=== PATIENT | female | born 1975 | race Caucasian/White ===

== ENCOUNTER → 2022-09-08 10:56 | Outpatient (BNVA) | payer MEDICAID, SELFPAY | PROVIDERS: PCP Nurse Practitioner Family; Visit Provider Nurse Practitioner Family | DX: I10 Essential (primary) hypertension (principal) | CPT/HCPCS: 80053; 84439; 84443; 84481; 85025 ==

== ENCOUNTER → 2022-09-13 16:09 | Outpatient (BNVA) | payer MEDICAID, SELFPAY | PROVIDERS: PCP Nurse Practitioner Family; Visit Provider Nurse Practitioner Family | DX: D64.9 Anemia, unspecified (principal) | CPT/HCPCS: 83036 ==

== ENCOUNTER 2022-09-29 14:16 | Outpatient (CLI) | payer MEDICAID, SELFPAY ==
--- NOTE | 2022-09-29 14:30 | US_ITS ---
WS: [id number] US pelvic complete* 97522 HISTORY: N92.1 - Excessive and frequent menstruation with irregular cycles. COMPARISON: None available. Uterus: 11.6 cm x 6.8 cm x 5.5 cm. Mildly enlarged anteverted uterus. No fibroid identified. Uterine fibroid anterior mid uterine body measures 2.2 x 2.1 x 1.8 cm. Endometrium: 1.1 cm. Mildly heterogeneous endometrium. No increased vascularity. Heterogeneity may be related to retained products of menses. Right ovary: 3.7 cm x 2.5 cm x 2.6 cm. Normal size and vascularity, no cystic or solid masses. Left ovary: Not visualized. No adnexal mass. No free fluid in the cul-de-sac. US/US pelvic complete* 60162 IMPRESSION: 1. Mild uterine enlargement. 2. Fibroid mid uterine body measuring 2.2 x 2.1 x 1.8 cm. 3. LEFT ovary is not visualized. 4. Very mildly heterogeneous appearance of the endometrium. The heterogeneity may be related to retained menses and blood products. No increased vascularity.
== END 2022-09-29 14:17 | disposition home or self-care (01) ==
LOC: RAD 14:22
PROVIDERS: PCP Nurse Practitioner Family; Visit Provider Nurse Practitioner Family
DX: N92.1 Excessive and frequent menstruation with irregular cycle (principal); N85.2 Hypertrophy of uterus; D25.9 Leiomyoma of uterus, unspecified
CPT/HCPCS: 76856

== ENCOUNTER → 2022-10-28 16:00 | Outpatient (BNVA) | payer MEDICAID, SELFPAY | PROVIDERS: PCP Nurse Practitioner Family; Referring Provider Nurse Practitioner Family; Visit Provider Obstetrics & Gynecology | DX: N92.1 Excessive and frequent menstruation with irregular cycle (principal) | CPT/HCPCS: 83001 ==

== ENCOUNTER 2022-11-30 15:04 | Observation (INO) | payer MEDICAID, SELFPAY ==
[2022-11-25 13:12] VITALS: BMI 54.9
[2022-11-25 13:39] LABS: Basophils % 0.5 %; Eosinophils # 0.1 10^3/uL (0.0-0.8); Eosinophils % 1.8 %; Hematocrit 35.1 % (37.0-47.0); Hemoglobin 10.1 g/dL (11.5-15.3); Lymphocytes % 31.7 %; Mean Corpuscular HGB Conc 28.8 g/dL (30.0-36.0); Mean Corpuscular Hemoglobin 22.1 pg (28.0-34.0); Mean Corpuscular Volume 76.6 fl (81-99); Monocytes # 0.4 10^3/uL (0.2-0.9); Monocytes % 5.9 %; Neutrophils # 3.76 10^3/uL (1.8-7.7); Neutrophils % 59.8 %; Nucleated Red Blood Cells % 0 %; Platelet Count 285 10^3/cmm (130-400); Red Blood Count 4.58 10^6/uL (4.1-5.3); Red Cell Distribution Width 18.4 % (12.1-15.1); White Blood Count 6.3 10^3/uL (4.0-10.0)
--- NOTE | 2022-11-25 13:40 | P.ANESASSM_ITS ---
Pre-Anesthetic Assessment Height/Weight: Height 1.65 m Weight 149.685 kg Operation Date: 11/30/22 10:50 Proposed Procedures p Laparoscopic Assist Vaginal Hysterectomy 41016, N92.0,D25.9(Not Applicable) - Sloan Miguel MD Familial anesthetic complications: none Was Beta Dyan taken within 24 hours: N/A Was Clonidine taken within 24 hours: N/A Social No alcohol and No tobacco Exam alert, oriented x 3, clear to auscultation bilaterally and regular rate & rhythm Airway Submandibular: within normal limits Cervical ROM: within normal limits Mallampati: Class II Dentition: chipped Pulmonary Sleep Apnea CV/HEM Anemia Metabolic Morbid Obesity Anesthetic Plan ASA status: 3 Anesthesia: General Medications/Allergies Home Medications Medication Instructions Recorded Confirmed Last Taken Type No Known Home Medications 09/08/22 11/21/22 Unknown History Allergies Allergy/AdvReac Type Severity Reaction Status Date / Time No Known Allergies Allergy Verified 11/21/22 09:00 [facility] Anesthesia Medical History delivery delivered Flat feet Heavy period Insomnia Migraines Family History Grandfather Cancer COLON CANCER Grandmother Dementia Stroke Mother Diabetes Father Hypertension Denies family history of CAD (coronary artery disease) Clotting disorder Hyperlipidemia Psychiatric illness Chronic kidney disease (CKD) Suicide Bleeding disorder Family history of premature coronary artery disease Lung disease Social History Smoking and tobacco status: current every day smoker Second hand smoke exposure: No Smoking risk assessment/counseling performed?: Yes Alcohol intake: never Desire information about alcohol rehabilitation?: No Counseling given: No Substance/Drug Use: never Desire information about substance/drug rehabilitation?: No Counseling given: No Caregiver/support person: No Lives independently: Yes Household members: children Marital status: service: No Current occupational status: employed Current occupation: DISPATCHER Do you think of yourself as: Straight/Heterosexual Current gender identity: Female Female Reproductive History Para: 4 Spontaneous abortions: Yes Data Anesthesia 11/25/22 13:30 11/25/22 13:30 Short CBC 11/25/22 Range/Units 13:30 WBC 6.3 (4.0-10.0) 10^3/uL Hgb 10.1 L (11.5-15.3) g/dL Hct 35.1 L (37.0-47.0) % MCV 76.6 L (81-99) fl Plt Count 285 (130-400) 10^3/cmm Neut % (Auto) 59.8 % Neut # (Auto) 3.76 (1.8-7.7) 10^3/uL Cardiac Studies: No Data to Display
[2022-11-25 13:57] LABS: Alanine Aminotransferase 10 U/L (0-33); Albumin Level 3.8 g/dL (3.5-5.2); Alkaline Phosphatase 58 U/L (35-105); Anion Gap 16.9 (5-19); Aspartate Amino Transferase 28 U/L (0-32); Blood Urea Nitrogen 11 mg/dL (6-20); Carbon Dioxide 24 mmol/L (22-29); Chloride 107 mmol/L (98-107); Glomerular Filtration Rate 132.2 mL/min (90-130); Glucose 123 mg/dL (65-115); Osmolality Calculated 297 mOsm/kg (285-295); Potassium 4.9 mmol/L (3.5-5.1); Sodium 143 mmol/L (136-145); Total Bilirubin 0.2 mg/dL (0.15-1.2); Total Protein 6.8 g/dL (6.6-8.7)
[2022-11-25 14:58] LABS: Add Urine Microscopic? NO; Charge for UA Resulting for Rev
[2022-11-25 15:13] LABS: Urine Color Yellow (Yellow)
[2022-11-25 15:14] LABS: Bilirubin Urine Neg (Negative); Blood Urine Neg (Negative); Glucose Urine UA Norm (Normal); Ketones Urine 1+ (Negative); Leukocyte Esterase Urine Negative (Negative); Nitrate Urine Negative (Negative); Protein Urine Neg (Negative); Urine Appearance Clear (CLEAR); Urobilinogen Urine Norm (Negative); pH Urine 5 (5-7)
[2022-11-30] VITALS (17 sets, daily range): BP systolic 118–182; BP diastolic 65–110; PULSE 74–91; RESP 16–22; TEMP 36.2–36.9; O2SAT 91–99
--- NOTE | 2022-11-30 09:34 | P.ANESUD_ITS ---
Pre-Anesthetic Update Pre-Anesthetic Assessment: Date of Surgery/Procedure: 11/30/22 Preop Olga gnosis: abnormal uterine bleeding, Uterine fibroids Proposed Procedure: Operation Date: 11/30/22 10:50 Proposed Procedures p Laparoscopic Assist Vaginal Hysterectomy 87471, N92.0,D25.9(Not Applicable) - Sloan Miguel MD Any changes to Pre-Anesthetic Assessment?: No Last Intake: Intake Last Liquid Date 11/29/22 Last Liquid Time 20:00 Last Solid Date 11/29/22 Last Solid Time 19:00 Vitals: Temperature 97.4 F L 11/30/22 09:24 Temperature Source Temporal Artery S can 11/30/22 09:24 Pulse Rate 91 11/30/22 09:24 Respiratory Rate 18 11/30/22 09:24 Blood Pressure 182/110 11/30/22 09:24 Blood Pressure Sujatha n 134 11/30/22 09:24 Pulse Oximetry 95 11/30/22 09:24 Oxygen Delivery Me thod Room Air 11/30/22 09:24 Exam: Pre-Anes Outpt Exam: alert, oriented x 3, clear to auscultation bilaterally and regular rate & rhythm Cardiac Studies: No Data to Display
[2022-11-30] MEDS: sodium chloride 0.9% 500 ML IV (09:39)
[2022-11-30] MEDS: scopolamine 1.5 Patch 1 PATCH TRANSDERMA (09:39)
[2022-11-30] MEDS: sodium chloride 0.9% 1,000 ML 30 ML IV (10:30)
--- NOTE | 2022-11-30 11:33 | W.PM.OPSUD ---
Surgery/Procedure H&P Update DATE OF PROCEDURE: November 30, 2022 DATE H&P PERFORMED: 11/21/22 H&P UPDATE INFORMATION: I have reviewed H&P completed within last 30 days, I have examined patient prior to procedure and No changes to prior documentation PREOP DIAGNOSIS: abnormal uterine bleeding, Uterine fibroids PLANNED PROCEDURE: Operation Date: 11/30/22 10:50 Proposed Procedures p Laparoscopic Assist Vaginal Hysterectomy 94205, N92.0,D25.9(Not Applicable) - Sloan Miguel MD
[2022-11-30] MEDS: ceFAZolin 3,000 MG in sodium chloride 0.9% (100 ml) 100 ML 200 MG IV (11:50)
[2022-11-30] MEDS: lidocaine-epi 2% 20 mL INJ INJECTION (13:17)
--- NOTE | 2022-11-30 15:01 | P.OP_ITS ---
Operative Report Date of procedure: November 30, 2022 Pre-op diagnosis: Preop Diagnosis abnormal uterine bleeding, Uterine fibroids Post-op diagnosis: Enlarged uterus Procedure done: Laparoscopic-assisted vaginal hysterectomy Specimens removed/disposition: Uterus and fallopian tube Surgeon: Sloan Miguel MD Estimated blood loss (mL): 250 IV fluids (mL): 1,100 Urine output (mL): 150 Complications: None Procedure: After discussing informed consent again, the patient was taken to the operating room where general anesthesia was administered. She was placed in the dorsal lithotomy position in low stirrups and prepped and draped in sterile fashion. Pre-Procedure Time-Out verifying the correct patient identity, correct procedure verified with consent, correct site and side, correct patient position, availability of correct implants and any special equipment or requirements was performed and acknowledge by the OR team. After the initial preparation, the procedure commenced at the vagina. With a Bookwalter vaginal retractor was place to visualize the cervix; the anterior and posterior lips of the cervix were separately grasped and clamped with franklin tooth tenaculum. The cervix was then dilated to a #6 hegar dilator and a uterine manipulator within the uterine cavity for manipulation purposes being careful not to puncture the uterus. A Morrison catheter was placed in the bladder. Attention was then turned to the abdomen. The umbilical region was infiltrated with 2% lidocaine with epinephrine. Following infiltration with lidocaine, an intraumbilical incision was made and the Verres needle was gently advanced taking care to feel for the typical sensation of penetrating the peritoneum. With CO2 infiltration, an opening pressure of 5 mmHg was noted, and following this, a pneumoperitoneum of 15 mmHg was created. A 5 mm Optiview trocar was then passed through the same incision under direct visualization. Trocar was removed and the laparoscope was then inserted through the trocar sleeve. Visualization of the peritoneal cavity was then obtained and a brief inspection did not reveal any signs of complications from entry. Under direct observation, a second incision was made 3 cm above the symphysis pubis, and a 5 mm trocar and sleeve were admitted into the abdomen under direct, laparoscopic visualization without complication. Once the placement of the ports was complete, the actual laparoscopic procedure began. Beginning on the right side and distally along the length of the fallopian tube, the mesosalpinx was exposed by lifting the tube/ovary up towards the anterior abdominal wall. The mesosalpinx was then sequentially, clamped, ligated, and cut using the LigaSure device working alongside the length of the tube and towards the cornua. Once the level of the cornua was reached attention was then turned to the other side. The same process was repeated on the left, sequentially clamping, sealing/ligating, and cutting the mesosalpinx being sure to not injure the adjacent ovarian tissue or other surrounding structures. The round ligament was then clamped, sealed/ligated and cut with the LigaSure device. Following this, the anterior leaf of the broad ligament was then taken down on the left side, dissecting down towards the peritoneal reflection at the base of the bladder and adjacent to the cervix. The same process was then repeated on the left side such that both sides met and the anterior leaflet had been appropriately skeletonized. Attention was then turned to the vaginal aspect of the surgery. A Bookwalter vaginal retractor was placed in the vagina and the uterine manipulator was removed. The tenaculum was repositioned anteriorly and posteriorly. A circumferential incision was made at the cervical vaginal reflection using cautery. This was undermined first anteriorly and a colpotomy made without difficulty. This was then repeated posteriorly and a similar colpotomy made. Edilia retractors were then placed into each of these incisions. Beginning first on the patient's left, the uterosacral and cardinal ligament was clamped, sealed, divided, and suture ligated. Two bites were required to reach the previous dissection margin of the left side. The same process was then repeated on the patient's right hand side, at which point, the specimen was completely freed. Once the sutures had been placed and the pedicles secured, the uterus removed transvaginally without difficulty. All pedicles were inspected and hemostasis was confirmed. The vaginal vault was then oversewn with a running locking Vicryl suture, securing first the posterior edge of the cuff followed by the anterior edge. Good hemostasis was obtained. Two [id number] sutures were then placed across the vaginal vault to close it. Once these had been tied off, all sutures were trimmed; a wet sponge was placed in the vagina to pack it off while attention was again turned back to the abdomen. All instruments were removed from the vagina at this time. The abdomen was inspected to ensure complete hemostasis. Once the entire abdomen was inspected the instruments carefully removed. The ports were then removed under direct visualization being sure to note hemostasis of the port sites on removal. The incisions were then closed with interrupted Vicryl sutures and Dermabond. The patient tolerated the procedure well, anesthesia reversed, and the patient was taken to the recovery room in stable condition. All sponges, instruments, and sharps were counted and correct x 3. I spent 35 minutes with the patient in discussion and counseling as documented above This documentation was created by [employer] quality assurance coach software (known for inherent quality assurance coach error). Every effort was made to assure accuracy of quality assurance coach. But this EMR does not have a spell check medical dictionary.
[2022-11-30] MEDS: labetalol 5 mg/mL SDV 20mL 100 MG (15:30)
[2022-11-30] MEDS: dextrose 5%-lactated ringers 1,000 ML 125 ML IV (17:13)
[2022-11-30] MEDS: ketorolac 30 mg/mL INJ IVP (22:01)
[2022-12-01] MEDS: dextrose 5%-lactated ringers 1,000 ML 125 ML IV (02:47)
[2022-12-01 03:47] VITALS: BP 145/80; PULSE 78; RESP 18; O2SAT 91
[2022-12-01 05:32] LABS: Hematocrit 32.8 % (37.0-47.0); Hemoglobin 9.2 g/dL (11.5-15.3); Mean Corpuscular Volume 78.5 fl (81-99); Mean Platelet Volume 10.3 fL (7.4-10.4); Platelet Count 226 10^3/cmm (130-400); Red Blood Count 4.18 10^6/uL (4.1-5.3); Red Cell Distribution Width 17.8 % (12.1-15.1); White Blood Count 8.5 10^3/uL (4.0-10.0)
[2022-12-01 08:00] VITALS: BP 136/85; PULSE 80; RESP 20; TEMP 36.6; O2SAT 97
--- NOTE | 2022-12-01 08:44 | P.DS_ITS ---
Discharge Providers AUTOMOTIVE SOFTWARE ENGINEER Date of Admission: 11/30/22 15:04 Date of Discharge: 12/01/22 Attending Provider at Admission: lSoan Miguel MD Attending Provider at Discharge: Sloan Miguel MD Primary AUTOMOTIVE SOFTWARE ENGINEER: Sloan Miguel MD Primary Care Provider: ANTONELLA Casey Reason for Visit Reason for Visit: D25.9, N92.0 Hospital Course Hospital Course Mrs. Lord 47-year-old female with a history of abnormal uterine bleeding unresponsive to medical management and enlarged uterus suggestive of uterine fibroid. Admitted for plan laparoscopic-assisted vaginal hysterectomy. The procedure was performed without complications. Overnight observation was uneventful. She is afebrile hemodynamically stable postoperative day 1. Tolerating diet well. Ambulating without difficulty. She was counseled regarding pelvic rest for 6 weeks (no sex, no tampons, no vaginal douches). Return to the emergency room if any fever, increased bleeding or pain. Physical Exam Narrative: GA: Alert and oriented ?3. HEENT: WNL. Heart: Regular rate and rhythm. Lungs: Clear to auscultation bilaterally. Abdomen: Bowel sounds present, nontender, no distention. no guarding. X [employer]AY EX[employer]ER [employer]: No bleeding. Extremities: No edema, no cyanosis, no calves pain. Urinary Catheter Management: Morrison: Cath Placed During This Visit: yes, but has since been removed by the nurse Reason for Continuing Indwelling Catheter: Decision to DC Catheter Urinary Catheter Date of Insertion: 11/30/22 Urinary Catheter Time of Insertion: 12:35 Date Urinary Catheter Removed: 12/01/22 Time Urinary Catheter Discontinued: 05:38 Discharge Data Studies Completed and Pending Pending at discharge Category Date Time Status Pathology: Surgical [PTH] Routine Pth 11/30/22 14:14 Received Laboratory Results WBC 8.5 10^3/uL (4.0-10.0) 12/01/22 05:25 RBC 4.18 10^6/uL (4.1-5.3) 12/01/22 05:25 Hgb 9.2 g/dL (11.5-15.3) L 12/01/22 05:25 Hct 32.8 % (37.0-47.0) L 12/01/22 05:25 MCV 78.5 fl (81-99) L 12/01/22 05:25 MCH 22.0 pg (28.0-34.0) L 12/01/22 05:25 MCHC 28.0 g/dL (30.0-36.0) L 12/01/22 05:25 RDW 17.8 % (12.1-15.1) H 12/01/22 05:25 Plt Count 226 10^3/cmm (130-400) 12/01/22 05:25 MPV 10.3 fL (7.4-10.4) 12/01/22 05:25 Neut % (Auto) 59.8 % 11/25/22 13:30 Lymph % (Auto) 31.7 % 11/25/22 13:30 Sawyer % (Auto) 5.9 % 11/25/22 13:30 Eos % (Auto) 1.8 % 11/25/22 13:30 Baso % (Auto) 0.5 % 11/25/22 13:30 Neut # (Auto) 3.76 10^3/uL (1.8-7.7) 11/25/22 13:30 Lymph # (Auto) 2.0 10^3/uL (0.8-4.8) 11/25/22 13:30 Sawyer # (Auto) 0.4 10^3/uL (0.2-0.9) 11/25/22 13:30 Eos # (Auto) 0.1 10^3/uL (0.0-0.8) 11/25/22 13:30 Baso # (Auto) 0.0 10^3/uL (0.0-0.1) 11/25/22 13:30 Nucleated RBC % (auto) 0 % 11/25/22 13:30 Nucleated RBCs # 0.0 /100WBC 11/25/22 13:30 Sodium 143 mmol/L (136-145) 11/25/22 13:30 Potassium 4.9 mmol/L (3.5-5.1) 11/25/22 13:30 Chloride 107 mmol/L (98-107) 11/25/22 13:30 Carbon Dioxide 24 mmol/L (22-29) 11/25/22 13:30 Anion Gap 16.9 (5-19) 11/25/22 13:30 BUN 11 mg/dL (6-20) 11/25/22 13:30 Creatinine 0.5 mg/dL (0.5-0.9) 11/25/22 13:30 GFR Calculation 132.2 mL/min (90-130) H 11/25/22 13:30 Glucose 123 mg/dL (65-115) H 11/25/22 13:30 Calculated Osmolality 297 mOsm/kg (285-295) H 11/25/22 13:30 Calcium 9.0 mg/dL (8.5-10.5) 11/25/22 13:30 Total Bilirubin 0.2 mg/dL (0.15-1.2) 11/25/22 13:30 AST 28 U/L (0-32) 11/25/22 13:30 ALT 10 U/L (0-33) 11/25/22 13:30 Alkaline Phosphatase 58 U/L (35-105) 11/25/22 13:30 Total Protein 6.8 g/dL (6.6-8.7) 11/25/22 13:30 Albumin 3.8 g/dL (3.5-5.2) 11/25/22 13:30 Globulin 3.0 g/dL (1.3-4.6) 11/25/22 13:30 Urine Color Yellow (Yellow) 11/25/22 13:15 Urine Appearance Clear (CLEAR) 11/25/22 13:15 Urine pH 5 (5-7) 11/25/22 13:15 Ur Specific [place] 1.030 (1.005-1.030) 11/25/22 13:15 Urine Protein Neg (Negative) 11/25/22 13:15 Urine Glucose (UA) Norm (Normal) 11/25/22 13:15 Urine Ketones 1+ (Negative) H 11/25/22 13:15 Urine Blood Neg (Negative) 11/25/22 13:15 Urine Nitrate Negative (Negative) 11/25/22 13:15 Urine Bilirubin Neg (Negative) 11/25/22 13:15 Urine Urobilinogen Norm mg/dL (Negative) 11/25/22 13:15 Ur Leukocyte Esterase Negative (Negative) 11/25/22 13:15 Vitals Last Vital Signs Temp 97.9 F 12/01/22 08:00 Pulse 80 12/01/22 08:00 Resp 20 H 12/01/22 08:00 BP 136/85 12/01/22 08:00 Pulse Ox 97 12/01/22 08:00 O2 Del Method Nasal Cannula 12/01/22 08:00 O2 Flow Rate 3 12/01/22 08:00 Discharge Plan Discharge Patient Disposition: Home Condition: Stable Prescriptions: New ibuprofen 800 mg tablet 800 mg PO TID PRN (Reason: pain) Qty: 60 0RF hydrocodone-acetaminophen 5-325 mg tablet 1 tab PO Q4H PRN (Reason: pain) Qty: 20 0RF ferrous sulfate [Iron (ferrous sulfate)] 325 mg (65 mg iron) tablet 325 mg PO BID Qty: 60 0RF docusate sodium [Colace] 100 mg capsule 100 mg PO BID Qty: 60 0RF acetaminophen 325 mg capsule 325 mg PO Q4H PRN (Reason: fever or pain) Qty: 60 0RF Discharge Orders: Discharge Order (Routine); Ordered 12/01/22 Ordered By: Sloan Miguel Referrals: Sloan Miguel MD [Physician] - 2 weeks Discharge Diet: Usual diet Discharge Activity: Limit activity as instructed Patient Instructions: Laparoscopic Hysterectomy (GEN), Vaginal Hysterectomy ( GEN), OB Discharge Report, OB Food/Drug Interaction Guide, Opioid Safety Activity Restrictions/Additional Instructions: 1. Please call [facility] on next working day to make your post-operative appointment in 2 weeks. 2. Please stay home until you come back to the clinic on first post- hospatilization check up. 3. Please follow instructions on your medications CAREFULLY. 4. If you have abdominal incision, do not cover it unless dressing is necessary because of drainage. OK to shower, but avoid bath. Leave steri-strips until they fall off. If they are still on one week after surgery, you may remove them. 5. If you had vaginal surgery or vaginal repair, Dr. Miguel may instruct you to take SITZ bath. 6. Yellow, blood tinged odorous vaginal discharge is usually normal after hysterectomy or vaginal surgeries. 7. No SEXUAL INTERCOURSE, tampons, or douches until you are completely released from the post-operative care. 8. Avoid constipation by eating right and maybe using some Metamucil or Milk of Magnesia. 9. All prescription refills are given during the working hours. Please do no wait till it runs out. Call the clinic at [phone] before your medication runs out. The clinic will get in touch with your doctor to prescribe medications if necessary. 10. Please remain within 40 mile radius from our hospital because emergencies do happen now and then during the post-operative period. 11. If you have stairs at home, take one step at a time slowly and minimize the number of trips. It helps to stay in one floor for the next few days. No lifting except what you can lift by one hand until you are released from the post-operative care. 12. Driving is discouraged until you are well healed. It may be 3-4 weeks before you feel strong enough to drive. You should be able to turn and look through the rear window without pain and you should be able to push the brake pedal very hard without pain before you drive. No fast rules, but SAFETY should be your primary concern. DO NOT drive if you are on sedating medications such as narcotics. 13. Call the clinic (during working hours) to make urgent appointment or go to the Emergency room, if any of the following occurs: i. Vaginal bleeding becomes heavy, more than a period. ii. Incision becomes red and sore, or drains pus. iii. Your TEMPERATURE is over 100.4F or you have chill. iv. IV site becomes red and swollen (a little ``knot?? is usually OK) v. Persistent nausea and vomiting vi. Persistent constipation or diarrhea vii. Rash or allergic reaction to medications. Discharge Attestations AUTOMOTIVE SOFTWARE ENGINEER Time Spent in Discharge Care*: greater than 30 min Coding Level of Care Code Acute Code for Chg Fwd Diagnoses
[2022-12-01 09:27] VITALS: BP 136/85; PULSE 80; RESP 20; TEMP 36.6; O2SAT 97
== END 2022-12-01 09:27 | disposition home or self-care (01) ==
LOC: OBGYN 15:05
PROVIDERS: Admitting Provider Obstetrics & Gynecology; PCP Nurse Practitioner Family; Visit Provider Obstetrics & Gynecology
PROC: 0UT9FZZ Resection of Uterus, Via Natural or Artificial Opening With Percutaneous Endoscopic Assistance (ICD-10-PCS; CPT 58552; principal; 2022-11-30 10:40)
DX: N85.2 Hypertrophy of uterus (principal); G47.30 Sleep apnea, unspecified; D64.9 Anemia, unspecified; E66.01 Morbid (severe) obesity due to excess calories; Z68.43 Body mass index [BMI] 50.0-59.9, adult; F17.210 Nicotine dependence, cigarettes, uncomplicated
CPT/HCPCS: 58552; 36415; 80053; 81003; 81025; 85025; 85027; 88307; 96374; G0378; J0330; J0690; J1100; J1170; J1200; J1885; J2250; J2405; J2704; J2930; J3010; J3490; J7030; J7040; J7121; Q9968

== ENCOUNTER 2023-01-19 16:45 | Outpatient (CLI) | payer MEDICAID, SELFPAY | END 2023-01-19 16:46 | disposition home or self-care (01) | LOC: SLEEP 01-20 11:38 | PROVIDERS: PCP Nurse Practitioner Family; Visit Provider Nurse Practitioner Family | DX: G47.30 Sleep apnea, unspecified (principal) | CPT/HCPCS: G0399 ==

== ENCOUNTER 2023-04-05 20:00 | Outpatient (CLI) | payer MEDICAID, SELFPAY | END 2023-04-05 20:01 | disposition home or self-care (01) | LOC: SLEEP 04-06 04:53 | PROVIDERS: PCP Nurse Practitioner Family; Visit Provider Nurse Practitioner Family | DX: G47.33 Obstructive sleep apnea (adult) (pediatric) (principal) | CPT/HCPCS: 95811 ==

== ENCOUNTER → 2024-01-09 15:37 | Outpatient (BNVA) | payer MEDICAID, SELFPAY | PROVIDERS: PCP Nurse Practitioner Family; Visit Provider Nurse Practitioner Family | DX: I10 Essential (primary) hypertension (principal); E66.9 Obesity, unspecified; R53.83 Other fatigue | CPT/HCPCS: 80053; 80061; 85025 ==

== ENCOUNTER 2024-01-16 12:17 | Outpatient (CLI) | payer MEDICAID, SELFPAY ==
--- NOTE | 2024-01-16 12:30 | MM_ITS ---
WS: [id number] BILATERAL 3D TOMOSYNTHESIS DIGITAL SCREENING MAMMOGRAPHY WITH CAD CLINICAL INFORMATION: Z12.39 - Encounter for other screening for malignant neop... HISTORY: Screening mammogram. No current complaints. COMPARISON: Baseline TECHNIQUE: Bilateral CC and MLO views. FINDINGS: Scattered fibroglandular densities bilaterally. No suspicious focal mass, asymmetry, calcifications, or architectural distortion. No evidence of malignancy. MM/[place] [id number] IMPRESSION: BI-RADS: 1-Negative FOLLOW UP: 1 Year Follow-up Recommend return to annual screening mammography.
== END 2024-01-16 12:18 | disposition home or self-care (01) ==
LOC: RAD 12:18
PROVIDERS: PCP Nurse Practitioner Family; Visit Provider Nurse Practitioner Family
DX: Z12.31 Encounter for screening mammogram for malignant neoplasm of breast (principal); R92.323 Mammographic fibroglandular density, bilateral breasts
CPT/HCPCS: 77063; 77067; 80053; 80061; 85025

== ENCOUNTER 2024-02-28 10:55 | Day surgery (SDC) | payer MEDICAID, SELFPAY ==
[2024-02-28 11:08] VITALS: BP 198/106; PULSE 95; RESP 16; TEMP 36.2; O2SAT 95; BMI 51.9
[2024-02-28 11:16] VITALS: BP 186/107
[2024-02-28] MEDS: sodium chloride 0.9% 1,000 ML 30 ML IV (11:25)
--- NOTE | 2024-02-28 11:47 | ANES.PREANE2 ---
Pre-Anesthetic Assessment Height/Weight: Height 1.65 m Weight 141.521 kg Temp Pulse Resp BP Pulse Ox O2 Del Method 97.1 F L 95 16 186/107 95 Room Air 02/28/24 11:08 02/28/24 11:08 02/28/24 11:08 02/28/24 11:16 02/28/24 11:08 02/28/24 11:08 Preop Diagnosis: abd. pain Operation Date: 02/28/24 12:00 Proposed Procedures p Colonoscopy - 05885, G0105, R10.9 , R19.7(Not Applicable) - Ricky Giraldo DO Familial anesthetic complications: none Was Beta Dyan taken within 24 hours: N/A Was Clonidine taken within 24 hours: N/A Last intake: Intake Last Liquid Date 02/27/24 Last Liquid Time 18:00 Last Solid Date 02/26/24 Last Solid Time 17:00 Social No alcohol and No tobacco Exam alert and oriented x 3 Airway Submandibular: within normal limits Cervical ROM: within normal limits Mallampati: Class I Dentition: full Pulmonary Sleep Apnea Metabolic Morbid Obesity Anesthetic Plan ASA status: 3 Anesthesia: Anesthesia Evaluation, General and MAC Medications/Allergies Home Medications Medication Instructions Recorded Confirmed Last Taken Type Bipap #1 ea 04/11/23 02/28/24 Unknown Rx Allergies Allergy/AdvReac Type Severity Reaction Status Date / Time No Known Allergies Allergy Verified 01/30/24 15:47 Current Medications Generic Name Dose Route Start Last Admin Trade Name Freq PRN Reason Stop Dose Admin Sodium Chloride 1,000 mls @ 30 mls/hr 02/28/24 11:00 02/28/24 11:25 Sodium Chloride 0.9% IV 02/29/24 10:59 30 mls/hr .Q24H JOSEPH Administration PFSH Anesthesia Medical History No pertinent past medical history neghx:htn,dm,thryoid,dvt/pe PCP: Norma BERMAN- [facility] Flat feet Insomnia Heavy period Surgical History S/P laparoscopic assisted vaginal hysterectomy (LAVH) Performed for abnormal uterine bleeding and uterine fibroids on 11/30/[address] Miguel at [facility]. Pathology demonstrates a large leiomyoma, adenomyosis, cervical pathology with CATARINO-1; no high-grade dysplasia identified. History of section Family History Grandfather Cancer COLON CANCER Grandmother Dementia Stroke Mother Diabetes Father Hypertension Denies family history of CAD (coronary artery disease) Clotting disorder Hyperlipidemia Psychiatric illness Chronic kidney disease (CKD) Suicide Bleeding disorder Family history of premature coronary artery disease Lung disease Social History Smoking and tobacco/nicotine status: never used tobacco/nicotine Female Reproductive History Para: 4 Spontaneous abortions: Yes Data Anesthesia Cardiac Studies: No Data to Display
--- NOTE | 2024-02-28 12:10 | PM.HP ---
Providers/Chief Complaint Primary Care Provider: ANTONELAL Casey Chief Complaint: R10.9 History of Present Illness Argentina Thompson is a 48 year old female Review of Systems General: Reports: 10 or more systems reviewed and unremarkable except in HPI and below Medications/Allergies Home Medications Medication Instructions Recorded Confirmed Last Taken Type Bipap #1 ea 04/11/23 02/28/24 Unknown Rx Allergies Allergy/AdvReac Type Severity Reaction Status Date / Time No Known Allergies Allergy Verified 01/30/24 15:47 PFSH Acute PFSH: Medical History No pertinent past medical history neghx:htn,dm,thryoid,dvt/pe PCP: Norma BERMAN- [facility] Flat feet Insomnia Heavy period Surgical History S/P laparoscopic assisted vaginal hysterectomy (LAVH) Performed for abnormal uterine bleeding and uterine fibroids on 11/30/[address] Miguel at [facility]. Pathology demonstrates a large leiomyoma, adenomyosis, cervical pathology with CATARINO-1; no high-grade dysplasia identified. History of section Family History Grandfather Cancer COLON CANCER Grandmother Dementia Stroke Mother Diabetes Father Hypertension Denies family history of CAD (coronary artery disease) Clotting disorder Hyperlipidemia Psychiatric illness Chronic kidney disease (CKD) Suicide Bleeding disorder Family history of premature coronary artery disease Lung disease Social History Smoking and tobacco/nicotine status: never used tobacco/nicotine Female Reproductive History: Para: 4 Spontaneous abortions: Yes Vitals/I&O/Wt Last Vital Signs Temp 97.1 F L 02/28/24 11:08 Pulse 95 02/28/24 11:08 Resp 16 02/28/24 11:08 BP 186/107 02/28/24 11:16 Pulse Ox 95 02/28/24 11:08 O2 Del Method Room Air 02/28/24 11:08 Weight last 48 hrs Weight 312 lb A&P Assessment and plan (1) Screen for colon cancer: Plan Screening colonoscopy Attestations Medical Necessity Statement*: Home Coding Level of Care Code Acute Code for Chg Fwd Diagnoses Screen for colon cancer Z12.11
[2024-02-28 12:28] VITALS: BP 124/79; PULSE 82; RESP 18; TEMP 36.2; O2SAT 95
--- NOTE | 2024-02-28 12:31 | ANE.PACU2 ---
Inpatient post-anesthesia follow up: Airway intact: Yes Vital signs: Temperature 97.1 F Pulse Rate 95 Respiratory Rate 16 Blood Pressure 186/107 Pulse Oximetry 95 Oxygen Delivery Me thod Room Air Oxygen Flow Rate Fraction of Inspir ed Oxygen Hydration adequate: Yes Nausea and vomiting: No Pain level: 1 Mental status: Baseline
[2024-02-28 12:43] VITALS: BP 151/93; PULSE 74; RESP 18; O2SAT 94
== END 2024-02-28 13:06 | disposition home or self-care (01) ==
PROVIDERS: PCP Nurse Practitioner Family; Visit Provider Surgery
PROC: 0DJD8ZZ Inspection of Lower Intestinal Tract, Via Natural or Artificial Opening Endoscopic (ICD-10-PCS; CPT 45378; principal; 2024-02-28 12:00)
DX: R19.7 Diarrhea, unspecified (principal); R10.9 Unspecified abdominal pain; K63.5 Polyp of colon; K57.30 Diverticulosis of large intestine without perforation or abscess without bleeding; K64.8 Other hemorrhoids; G47.30 Sleep apnea, unspecified; E66.01 Morbid (severe) obesity due to excess calories
CPT/HCPCS: 45385; 88305; J2704; J7030

== ENCOUNTER → 2025-01-31 10:31 | Outpatient (BNVA) | payer MEDICAID, SELFPAY | PROVIDERS: PCP Nurse Practitioner Family; Visit Provider Nurse Practitioner Family | DX: I10 Essential (primary) hypertension (principal); E78.2 Mixed hyperlipidemia | CPT/HCPCS: 80053; 80061 ==

== ENCOUNTER 2025-02-14 15:31 | Outpatient (CLI) | payer MEDICAID, SELFPAY ==
--- NOTE | 2025-02-14 16:00 | USR_ITS ---
PROCEDURE INFORMATION: Exam: US Duplex Left Lower Extremity Arteries Or Arterial Bypass Grafts Exam date and time: 02/14/2025 3:58 PM Age: 49 years old Clinical indication: Pain; Leg, lower; Left; Additional info: M79.89 - other specified soft tissue disorders TECHNIQUE: Imaging protocol: Left Real-time duplex scan of the arteries or arterial bypass grafts of the left lower extremity with 2-D jaffe scale, color Doppler flow and spectral waveform analysis. Images documented and saved. COMPARISON: US pelvic complete* [id number] 09/29/2022 3:08 PM FINDINGS: Left common femoral artery: No occlusion or significant stenosis. Normal waveform. Peak systolic velocity 83 cm/sec. Left superficial femoral artery: No occlusion or significant stenosis. Normal waveform. Peak systolic velocity 93 cm/sec proximally, 128 cm/sec in the mid artery, and 95 cm/sec distally. Left popliteal artery: No occlusion or significant stenosis. Normal waveform. Peak systolic velocity 59 cm/sec. Left calf/foot arteries: No occlusion or significant stenosis in the visualized arteries. Normal waveforms. Dorsalis pedis artery is patent. Other findings: Left RAE 0.88. US/CV arterial duplex [facility] [id number] IMPRESSION: 1. No stenosis or occlusion. 2. Mildly decreased RAE suggestive of mild peripheral arterial disease.
== END 2025-02-14 15:32 | disposition home or self-care (01) ==
LOC: RAD 15:33
PROVIDERS: PCP Nurse Practitioner Family; Visit Provider Nurse Practitioner Family
DX: M79.89 Other specified soft tissue disorders (principal)
CPT/HCPCS: 93926